=== PATIENT | female | born 1945 | race Caucasian/White ===

== ENCOUNTER 2016-08-10 05:18 | Emergency (ER) | payer MEDICARE ==
[2016-08-10] MEDS ORDERED: IOPAMIDOL-300 100 ML VIAL IVP ONE (07:36)
[2016-08-10] MEDS ORDERED: cefTRIAXone 1 GM in SODIUM CHLORIDE 0.9% MINIBAG 100 ML IV STA (08:28)
[2016-08-10] MEDS ORDERED: cefTRIAXone 1 GM VIAL ONE (08:37)
== END 2016-08-10 09:30 | disposition home or self-care (01) ==
DX: N10 Acute pyelonephritis (principal); M79.7 Fibromyalgia; M19.90 Unspecified osteoarthritis, unspecified site
CPT/HCPCS: 36415; 74177; 80053; 81001; 83690; 85025; 87077; 87086; 87181; 96374; 99283; 99284; Q9967

== ENCOUNTER 2018-04-13 09:50 | Outpatient (CLI) | payer MEDICARE ==
[2018-04-13 13:24] LABS: BASOPHILS % (AUTO) 0.4 %; EOSINOPHILS # (AUTO) 0.2 10^3/uL (0.0-0.7); EOSINOPHILS % (AUTO) 2.1 %; HGB - HEMOGLOBIN 14.8 g/dL (12.0-16.0); LYMPHOCYTES # (AUTO) 1.9 10^3/uL (1.5-3.5); LYMPHOCYTES % (AUTO) 25.6 %; MEAN CORPUSCULAR HEMOGLOBIN 29.7 pg (27.0-31.0); MEAN CORPUSCULAR HGB CONC 33.6 g/dL (32.0-36.0); MEAN CORPUSCULAR VOLUME 88.5 fL (81.0-99.0); MEAN PLATELET VOLUME 8.1 fL (7.9-10.8); MONOCYTES # (AUTO) 0.5 10^3/uL (0.0-1.0); MONOCYTES % (AUTO) 7.3 %; NEUTROPHILS # (AUTO) 4.9 10^3/uL (1.5-6.6); NEUTROPHILS % (AUTO) 64.6 %; PLT - PLATELET COUNT 263 10^3/uL (130-450); RED BLOOD COUNT 4.99 10^6/uL (4.20-5.40); RED CELL DISTRIBUTION WIDTH 13.3 % (12.0-15.0); WHITE BLOOD COUNT 7.5 x10^3/uL (4.8-10.8)
[2018-04-13 14:06] LABS: HEMOGLOBIN A1C 0.67 g/dL
[2018-04-13 14:14] LABS: ALBUMIN 4.2 g/dL (3.2-5.5); ALBUMIN/GLOBULIN RATIO 1.4 (1.0-2.2); ALKALINE PHOSPHATASE 85 IU/L (42-121); ALT ALANINE AMINOTRANSFERASE 27 IU/L (10-60); AST ASPARTATE AMINOTRANSFERASE 23 IU/L (10-42); BILIRUBIN,TOTAL 0.8 mg/dL (0.2-1.0); BUN - BLOOD UREA NITROGEN 17 mg/dL (6-20); CALCIUM 9.1 mg/dL (8.5-10.3); CARBON DIOXIDE - CO2 26 mmol/L (21-32); CHLORIDE 108 mmol/L (101-111); CHOL/HDL RATIO 4.4 (<4.4); CHOLESTEROL 241 mg/dL; CREATININE 0.6 mg/dL (0.4-1.0); CRP - C-REACTIVE PROTEIN < 1.0 mg/dL (0-1.0); GFR - MDRD 99 (>89); GLUCOSE 113 mg/dL (70-100); HDL CHOLESTEROL 55 mg/dL; LDL CHOLESTEROL,CALCULATED 171 mg/dL; LDL/HDL RATIO 3.1 (<4.4); SODIUM 140 mmol/L (135-145); TOTAL PROTEIN 7.1 g/dL (6.7-8.2); VLDL CHOLESTEROL 15 mg/dL
[2018-04-13 17:17] LABS: RHEUMATOID FACTOR NEGATIVE (Negative)
== END 2018-04-13 23:59 | disposition home or self-care (01) ==
LOC: LAB.WCP 09:50
PROVIDERS: ATTEND Nurse Practitioner
DX: R53.83 Other fatigue (principal); R73.9 Hyperglycemia, unspecified; E78.5 Hyperlipidemia, unspecified; Z12.11 Encounter for screening for malignant neoplasm of colon
CPT/HCPCS: 36415; 80053; 80061; 83036; 83721; 84443; 85025; 85651; 86140; 86430

== ENCOUNTER 2018-04-27 09:01 | Outpatient (CLI) | payer MEDICARE | END 2018-04-27 09:02 | disposition home or self-care (01) | LOC: RT 09:01 | PROVIDERS: ATTEND Nurse Practitioner | DX: R06.02 Shortness of breath (principal) | CPT/HCPCS: 94010 ==

== ENCOUNTER 2018-04-27 11:48 | Outpatient (CLI) | payer MEDICARE ==
--- NOTE | 2018-04-30 08:49 | Mammography Report ---
Reason: SCREENING MAMMO Procedure Date: 04/27/2018 Accession Number: [id number] / [id number] Procedure: MGN - Screening Mammo Dig Bilat CPT Code: FULL RESULT: EXAM: Screening Mammo Dig Bilat DATE: 04/27/2018 12:03 PM CLINICAL HISTORY: Screening encounter. History of late childbearing. TECHNIQUE: Bilateral CC and MLO views were obtained. COMPARISON: 06/27/2011 and 12/18/2006. FINDINGS: The breasts demonstrate scattered fibroglandular densities bilaterally. Typically benign appearing intramammary right breast lymph node demonstrates no significant change dating back to 2011. No suspicious masses, clustered microcalcifications, or regions of architectural distortion are identified. IMPRESSION: Benign findings RECOMMENDATION: Routine annual screening unless otherwise clinically indicated. BIRADS CATEGORY 2: Benign findings STANDARD QUALIFYING STATEMENTS: 1. This examination was reviewed with the aid of Computer-Aided Detection (CAD). 2. A negative or benign imaging report should not preclude biopsy if clinically suspicious findings are present. 3. Dense breasts may obscure an underlying neoplasm. 4. This examination was reviewed without the aid of 3D breast imaging (tomosynthesis).
== END 2018-04-27 11:49 | disposition home or self-care (01) ==
LOC: DI.N 11:48
DX: Z12.31 Encounter for screening mammogram for malignant neoplasm of breast (principal)
CPT/HCPCS: 77067

== ENCOUNTER 2018-07-13 14:55 | Outpatient (CLI) | payer MEDICARE ==
--- NOTE | 2018-07-13 16:39 | XRAY Report ---
Reason: COPD STAGE 2 MODERATE, SHORTNESS OF BREATH Procedure Date: 07/13/2018 Accession Number: [id number] / [id number] Procedure: WCP - Chest 2 View X-Ray CPT Code: 48701 FULL RESULT: EXAM: CHEST RADIOGRAPHY EXAM DATE: 07/13/2018 03:04 PM. CLINICAL HISTORY: COPD STAGE 2 MODERATE, SHORTNESS OF BREATH. Chest pain. COMPARISON: XR CHEST PA AND LAT 10/19/2011 8:07 AM. TECHNIQUE: 2 views. FINDINGS: Lungs/Pleura: No focal opacities evident. No pleural effusion. No pneumothorax. Normal volumes. Mediastinum: Atherosclerotic aortic calcifications. Other: None. IMPRESSION: No consolidation evident. RADIA
== END 2018-07-13 14:56 | disposition home or self-care (01) ==
LOC: DI.WCP 14:55
PROVIDERS: ATTEND Nurse Practitioner
DX: J44.9 Chronic obstructive pulmonary disease, unspecified (principal); R06.02 Shortness of breath
CPT/HCPCS: 71046

== ENCOUNTER 2019-02-13 07:56 | Outpatient (CLI) | payer MEDICARE ==
[2019-02-13 12:59] LABS: CHOLESTEROL 236 mg/dL; HDL CHOLESTEROL 47 mg/dL; LDL CHOLESTEROL,CALCULATED 167 mg/dL; LDL/HDL RATIO 3.6 (<4.4); VLDL CHOLESTEROL 22 mg/dL
== END 2019-02-13 23:59 | disposition home or self-care (01) ==
LOC: LAB.N 07:56
PROVIDERS: ATTEND Family Medicine
DX: E78.5 Hyperlipidemia, unspecified (principal)
CPT/HCPCS: 36415; 80061; 83721

== ENCOUNTER 2019-06-28 12:52 | Outpatient (CLI) | payer MEDICARE ==
--- NOTE | 2019-07-01 12:11 | Mammography Report ---
Reason: ROUTINE MAMMO Procedure Date: 06/28/2019 Accession Number: [id number] / [id number] Procedure: MGN - Screening Mammo w/Mike CPT Code: Final Report FULL RESULT: EXAM: Screening Mammo w/Mike DATE: 06/28/2019 1:51 PM CLINICAL HISTORY: Screening encounter. TECHNIQUE: (B) - Bilateral CC and MLO views were obtained. COMPARISON: 04/19/2018 and 06/27/2011. PARENCHYMAL PATTERN: (D) - The breast(s) demonstrate(s) heterogeneously dense fibroglandular parenchyma. FINDINGS: There are no suspicious masses, calcifications, or areas of distortion. IMPRESSION: Negative examination. BI-RADS category 1. RECOMMENDATION: (ANNUAL) - Recommend routine annual screening mammography. BI-RADS CATEGORY: (1) - Negative. STANDARD QUALIFYING STATEMENTS: 1. This examination was not reviewed with the aid of Computer-Aided Detection (CAD). 2. A negative or benign imaging report should not preclude biopsy if clinically suspicious findings are present. 3. Dense breasts may obscure an underlying neoplasm. 4. This examination was reviewed with the aid of 3D breast imaging (tomosynthesis).
== END 2019-06-28 12:53 | disposition home or self-care (01) ==
LOC: DI.N 12:52
DX: Z12.31 Encounter for screening mammogram for malignant neoplasm of breast (principal)
CPT/HCPCS: 77063; 77067

== ENCOUNTER 2019-06-29 09:59 | Outpatient (CLI) | payer MEDICARE ==
[2019-06-29 10:51] LABS: CHOL/HDL RATIO 3.5 (<4.4); CHOLESTEROL 182 mg/dL; HDL CHOLESTEROL 52 mg/dL; LDL CHOLESTEROL,CALCULATED 112 mg/dL; LDL/HDL RATIO 2.2 (<4.4); VLDL CHOLESTEROL 18 mg/dL
== END 2019-06-29 10:00 | disposition home or self-care (01) ==
LOC: LAB 09:59
PROVIDERS: ATTEND Family Medicine
DX: E78.5 Hyperlipidemia, unspecified (principal); Z12.10 Encounter for screening for malignant neoplasm of intestinal tract, unspecified
CPT/HCPCS: 36415; 80061; 83721

== ENCOUNTER 2021-03-25 06:48 | Emergency (ER) | payer MEDICARE ==
[2021-03-25 07:02] VITALS: BP 123/70
--- NOTE | 2021-03-25 07:45 | ED Physician Documentation ---
PD HPI UPPER EXT INJURY - Stated complaint Stated Complaint: RT THUMB LAC - Chief complaint Chief Complaint: Laceration - History obtained from History obtained from: Patient - History of Present Illness Location: Right, Finger (thumb) Where injury occurred: Home Timing - onset: How many minutes ago (30) Timing - duration: Minutes (30) Timing - details: Abrupt onset Pain level max: 5 Pain level now: 3 Improved by: Rest - Additonal information Additional information: Patient is right-handed, tetanus shot up-to-date. She was using a mandolin slicer this morning and she accidentally sliced her thumb. Review of Systems Constitutional: denies: Fever GI: denies: Vomiting Neurologic: denies: Headache PD PAST MEDICAL HISTORY - Past Medical History Past Medical History: Yes Cardiovascular: Hypertension Endocrine/Autoimmune: None Psych: Other Musculoskeletal: Osteoarthritis, Fibromyalgia Other Past Medical History: Insomnia - Past Surgical History Past Surgical History: Yes Ortho: Knee replacement, Other /JAILER: section - Present Medications Home Medications: Ambulatory Orders Medication Instructions Recorded Confirmed Albuterol Sulfate [Proair Hfa 03/25/21 Inhaler] Amitriptyline [Elavil] 25 mg PO QPM 03/25/21 03/25/21 Losartan [Cozaar] 50 mg PO DAILY 03/25/21 03/25/21 hydroCHLOROthiazide [Hydrodiuril] 25 mg PO DAILY 03/25/21 03/25/21 - Allergies Allergies/Adverse Reactions: Allergies Allergy/AdvReac Type Severity Reaction Status Date / Time No Known Drug Allergies Allergy Verified 03/25/21 07:02 - Social History Does the pt smoke?: No Smoking Status: Never smoker Does the pt drink ETOH?: No Does the pt have substance abuse?: No - Immunizations Immunizations are current?: Yes - POLST Patient has POLST: No PD ED PE NORMAL - Vitals Vital signs reviewed: Yes - General General: Alert and oriented X 3, No acute distress - Derm Derm: Warm and dry - Extremities Extremities: Other (R thumb - 1 cm round skin avulsion tip of thumb. no nail involvement. NVI. no bone exposed) - Neuro Neuro: Alert and oriented X 3 - Psych Psych: Normal mood, Normal affect Results - Vitals Vitals: Vital Signs - 24 hr 03/25/21 07:00 Temperature 36.4 C L Heart Rate 85 Respiratory 16 Rate Blood Pressure 123/70 O2 Saturation 95 Oxygen O2 Source Room air Procedures - Laceration (location) R thumb Length in cm: 1 Wound type: Flap (circular avulsion), Clean Neurovascular status: Sensory intact, Motor intact, Vascular intact Tendon involvement: Tendon intact Wound preparation: Irrigated copiously NS Skin layer closure: Dermabond Other: Patient tolerated well, No complications, Neurovascular intact PD MEDICAL DECISION MAKING - ED course Complexity details: considered differential, d/w patient ED course: 75-year-old female with a distal thumb tip avulsion. No bony exposure. Tourniquet applied over the thumb and Dermabond applied. When the glue was dry, the tourniquet was removed. No further bleeding. Tetanus up-to-date. Neurovascularly intact. Warnings of infection and instructions on wound care given at bedside. Also counseled on how to minimize scarring. Patient counseled regarding signs and symptoms for which I believe and urgent re-evaluation would be necessary. Patient with good understanding of and agreement to plan and is comfortable going home at this time This document was made in part using voice recognition software. While efforts are made to proofread this document, sound alike and grammatical errors may occur. Departure - Departure Disposition: 01 Home, Self Care Clinical Impression: Skin avulsion Condition: Good Instructions: ED Wound Care Follow-Up: Jim Mhaaraj ARNP [Primary Care Provider] - Within 1 week Comments: Please follow-up with your doctor as needed for further care. The glue will fall off on its own. Do not apply ointment as this may dissolve the glue. Keep the wound bandaged. Return if you worsen. Return if you notice redness, swelling or drainage from the wound.
== END 2021-03-25 07:54 | disposition home or self-care (01) ==
LOC: ED 06:48
DX: S61.011A Laceration without foreign body of right thumb without damage to nail, initial encounter (principal); W27.4XXA Contact with kitchen utensil, initial encounter; Y93.G1 Activity, food preparation and clean up; Y92.009 Unspecified place in unspecified non-institutional (private) residence as the place of occurrence of the external cause
CPT/HCPCS: 12001; 99282

== ENCOUNTER 2021-07-22 08:00 | Outpatient (CLI) | payer MEDICARE | END 2021-07-22 23:59 | disposition home or self-care (01) | LOC: LAB.N 08:00 | PROVIDERS: ATTEND Physician Assistant Medical | DX: R05.1 Acute cough (principal); Z20.822 Contact with and (suspected) exposure to COVID-19 ==

== ENCOUNTER 2022-02-22 12:15 | Emergency (ER) | payer MEDICARE ==
[2022-02-22 12:28] VITALS: BP 145/100
== END 2022-02-22 13:10 | disposition home or self-care (01) ==
LOC: ED 12:15
DX: Z53.21 Procedure and treatment not carried out due to patient leaving prior to being seen by health care provider (principal)

== ENCOUNTER 2024-01-24 12:21 | Outpatient (CLI) | payer MEDICARE ==
[2024-01-24 12:48] LABS: BILIRUBIN,URINE NEGATIVE (NEGATIVE); GLUCOSE, URINE (UA) NEGATIVE (NEGATIVE); KETONES,URINE (UA) NEGATIVE (NEGATIVE); LEUKOCYTE ESTERASE, URINE TRACE (NEGATIVE); NITRITE,URINE POSITIVE (NEGATIVE); OCCULT BLOOD,URINE MODERATE (NEGATIVE); PROTEIN,URINE NEGATIVE (NEGATIVE); UROBILINOGEN,URINE 0.2 (NORMAL) E.U./dL (NORMAL)
[2024-01-24 12:55] LABS: CLARITY,URINE HAZY (CLEAR)
[2024-01-24 13:07] LABS: BACTERIA,URINE Rare /HPF (None Seen); RBC,URINE TNTC /HPF (0-5); SQUAMOUS EPITHELIAL CELL,UR MOD Squamous (<= Few); WBC,URINE >25 /HPF (0-5)
== END 2024-01-24 12:22 | disposition home or self-care (01) ==
LOC: LAB 12:21
PROVIDERS: ATTEND Physician Assistant
DX: R30.0 Dysuria (principal)
CPT/HCPCS: 81001; 87086